=== PATIENT | female | born 1985 | race Caucasian/White ===

== ENCOUNTER 2017-04-19 11:39 | Emergency (ER) | payer MEDICAID ==
[~2017-04-19] VITALS: Ht 160 cm; Wt 53.0 kg
[~2017-04-19 11:39] MED LIST: CEPH500C3 PO
[2017-04-19 11:46] VITALS: BP 129/65; PULSE 62; RESP 16; TEMP 99.1; O2SAT 98
--- NOTE | 2017-04-19 12:15 | PD ---
HPI Chief Complaint: Musculoskeletal Complaint Time Seen by Provider: 11:53 Travel History International Travel<30 days: No Contact w/Intl Traveler<30days: No Traveled to known affect area: No History of Present Illness HPI 31-year-old female presents to the emergency room for evaluation of left hip pain that has been ongoing for the past 5 years. Pain started after a fall 5 years ago. Patient states over the past year it has been progressively getting worse. Pain is localized to the left lateral hip without significant radiation. She does not take anything [id number] for it. She has been applying topical creams and smoking pot without significant relief in symptoms. She also massages daily. She used to follow with pain management for chronic low back pain from the fall and did not like the pain medication she was put on so she stopped going. Patient has pain with any flexion of the hip. She reports intermittent paresthesias of left lower extremity. Denies loss of bowel or bladder control or saddle anesthesia. Denies chronic steroid or alcohol use. History Past Medical Histgory LMP: NOW Social History Alcohol Use: No Tobacco Use: Yes (07/20 PPD) Allergies-Medications (Allergen,Severity, Reaction): Coded Allergies: No Known Allergies (Verified , 04/19/17) Reported Meds & Prescriptions Reported Meds & Active Scripts Active No Active Prescriptions or Reported Medications Review of Systems Except as stated in HPI: all other systems reviewed are Neg Physical Exam Narrative GENERAL: Well-nourished, well-developed female in no acute distress. Afebrile. Ambulatory without difficulty. Able to move on the bed without significant difficulty. SKIN: Focused skin assessment warm/dry. HEAD: Normocephalic. EYES: No scleral icterus. No injection or drainage. NECK: Supple, trachea midline. No JVD or lymphadenopathy. CARDIOVASCULAR: Regular rate and rhythm without murmurs, gallops, or rubs. RESPIRATORY: Breath sounds equal bilaterally. No accessory muscle use. MUSCULOSKELETAL: No cyanosis, or edema. 2+ patellar and Achilles reflexes are equal bilaterally. Data Data Last Documented VS Vital Signs Date Time Temp Pulse Resp B/P (MAP) Pulse Ox O2 Delivery O2 Flow Rate FiO2 04/19/17 11:46 99.1 62 16 129/65 (86) 98 MDM Medical Screen Exam Complete: Yes Emergency Medical Condition: No Differential Diagnosis Chronic left hip pain Narrative Course 31-year-old female presents to the emergency room for evaluation of chronic left hip pain. Pain is ongoing for the past 5 years after a fall but worsened one year ago. She has not seen anyone for her symptoms. She does not take anything. No risk factors for avascular necrosis. She is ambulatory without difficulty. Left lower extremity is neurovascularly intact. Bilateral lower extremity reflexes are 2+ and equal. No indications for emergent imaging at this time. This is chronic pain. Patient was told to follow-up with her primary care physician for outpatient MRI or referral to pain management. Told to return for worsening symptoms. She understands and agrees to plan. A medical screening exam was performed: At the time of evaluation the presenting medical condition was determined not to be of an emergent nature. The patient was given the option of receiving additional care, but declined. Patient was given options for additional community resources from which to obtain care. The Patient Has Been advised to seek medical attention for their presenting complaint. The patient has been advised to return to the ER at any time if an emergent condition develops. Primary Impression: Encounter for medical screening examination Scripts No Active Prescriptions or Reported Meds Disposition: 01 DISCHARGE HOME Condition: Stable Erica Jo Apr 19, 2017 12:15
== END 2017-04-19 12:21 | disposition left against medical advice (07) ==
LOC: PHEFT 11:39
DX: Z53.21 Procedure and treatment not carried out due to patient leaving prior to being seen by health care provider (principal)
CPT/HCPCS: 99281